=== PATIENT | male | born 1975 | race Caucasian/White ===

== ENCOUNTER 2017-03-19 01:05 | Emergency (ER) | payer BC, OTHER ==
[~2017-03-19] VITALS: Ht 188 cm; Wt 73.3 kg
[~2017-03-19 01:05] MED LIST: BUPR-79 PO; FLUC100T PO; LINA1CAP PO; MELATAB2 PO; ONDA4TAB46 PO; SACC250C3 PO; VNCS125 PO; VTMD1000 PO
[2017-03-19 01:13] VITALS: TEMP 36.7; Ht 188 cm; Wt 73.3 kg
--- NOTE | 2017-03-19 01:22 | EMERGENCY ROOM VISIT NOTE ---
History Report prepared by Gian: Rachael Damon Under the Supervision of: Dr. Abdullahi Badillo M.D. First contact with patient: :17 Chief Complaint: ABDOMINAL PAIN Stated Complaint: ABD PAIN,SHARP ON TH LRQ History of Present Illness The patient is a 41 year old male who presents to the Emergency Room with complaints of right-sided abdominal pain beginning several days ago. He describes the pain as being sharp. The patient states that he recently had a colectomy because he has diverticulitis. The patient denies fevers, rashes, chest pain, shortness of breath, urinary symptoms, and diarrhea. He states that movement exacerbates the pain. The patient denies a history of kidney stones and an appendectomy. Source of History: patient Onset: several days ago Position: abdomen (right-sided) Quality: sharp Modifying Factors (Worsening): movement Associated Symptoms: No fevers, No chest pain, No SOB, No diarrhea, No urinary symptoms, No rash Review of Systems See HPI for pertinent positives & negatives. A total of 10 systems reviewed and were otherwise negative. Past Medical & Surgical Medical Problems: (1) Clostridium difficile enterocolitis (2) Colitis (3) Diarrhea (4) Diverticulitis (5) Sigmoid diverticulitis (6) SIRS (systemic inflammatory response syndrome) Surgical Problems: (1) H/O colectomy Family History No pertinent family history Social History Smoking Status: Never Smoker Drug Use: none Marital Status: Housing Status: lives with family Occupation Status: employed Current/Historical Medications Scheduled Cholecalciferol (Vitamin D3), 1,000 UNITS PO DAILY Fluoxetine (Prozac), 10 MG PO DAILY Melatonin (Melatonin), 0.25 ML PO HS Saccharomyces Boulardii (Florastor), 250 MG PO BID Scheduled PRN Ondansetron Hcl (Zofran), 4 MG PO Q8 PRN for Nausea Allergies Coded Allergies: Tramadol (Verified Allergy, Severe, "SEVERE" MIGRAINE, DID "WEIRD" BEHAVIORS., 03/19/17) Promethazine (Verified Allergy, Intermediate, "DRUNK"/ALTERED STATE OF MIND, PER ., 03/19/17) Amoxicillin (Verified Allergy, Unknown, HIVES, 03/19/17) Trazodone (Verified Adverse Reaction, Unknown, MOOD IRRITABILITY, 03/19/17) PATIENT STATES HE TAKES TRAZADONE HS WITHOUT DIFFICULTY. PATIENT BECAME IRRITABLE WHEN TAKEN DURING THE DAY. Physical Exam Vital Signs Date Time Temp Pulse Resp B/P (MAP) Pulse Ox O2 Delivery O2 Flow Rate FiO2 03/19/17 03:02 67 16 130/73 99 Room Air 03/19/17 01:13 36.7 65 18 135/87 100 Room Air Physical Exam GENERAL: Patient is uncomfortable appearing and in no moderate distress. HEENT: No acute trauma, normocephalic atraumatic, mucous membranes moist, no nasal congestion, no scleral icterus. NECK: No stridor, no adenopathy, no meningismus, trachea is midline. LUNGS: No dyspnea. Clear to auscultation and equal bilaterally. No wheeze, no rhonchi. HEART: Regular rate and rhythm. No murmurs, rubs, gallops appreciated. ABDOMEN: Tenderness to palpation over right lower quadrant. Well healed port scars in right lower abdomen and umbilicus. Tenderness to palpation just lateral to port site. bowel sounds positive, no masses appreciated, no peritonitis. BACK: No midline tenderness, no CVA tenderness EXTREMITIES: Normal motion all extremities, no cyanosis, no edema. NEUROLOGIC: Alert and oriented, no acute motor or sensory deficits, no focal weakness, cranial nerves grossly intact. SKIN: No rash, no jaundice, no diaphoresis. Medical Decision & Procedures ER Provider Diagnostic Interpretation: Radiology results and stated below per [facility]. CT ABDOMEN & PELVIS With Contrast: Comparison is made to CT abdomen/pelvis on 06/12/2016. Small left renal cyst. No hydronephrosis or stone. Changes of prior vasectomy. Anastomotic suture line in the sigmoid colon with changes of partial colectomy. Normal appendix. Large amount of stool in the colon may represent constipation. No bowel obstruction or inflammation. Nondilated fluid and gas-filled small bowel loops are nonspecific. Enteritis cannot be excluded. Mild prominence of the bladder wall may be related to underdistention. Please correlate with urinalysis. Probably punctate bone island in the left femoral head. Laboratory Results 03/19/17 01:37 Red Blood Count 4.74, Mean Corpuscular Volume 89.9, Mean Corpuscular Hemoglobin 31.0, Mean Corpuscular Hemoglobin Concent 34.5, Mean Platelet Volume 10.4, Neutrophils (%) (Auto) 29.6, Lymphocytes (%) (Auto) 56.5, Monocytes (%) (Auto) 10.2, Eosinophils (%) (Auto) 2.9, Basophils (%) (Auto) 0.6, Neutrophils # (Auto ) 1.83, Lymphocytes # (Auto) 3.49, Monocytes # (Auto) 0.63, Eosinophils # (Auto ) 0.18, Basophils # (Auto) 0.04 03/19/17 01:37 03/19/17 02:53 Test 03/19/17 01:37 03/19/17 01:40 03/19/17 02:53 White Blood Count 6.18 K/uL (4.8-10.8) Red Blood Count 4.74 M/uL (4.7-6.1) Hemoglobin 14.7 g/dL (14.0-18.0) Hematocrit 42.6 % (42-52) Mean Corpuscular Volume 89.9 fL (80-100) Mean Corpuscular Hemoglobin 31.0 pg (25-34) Mean Corpuscular Hemoglobin Concent 34.5 g/dl (32-36) Platelet Count 264 K/uL (130-400) Mean Platelet Volume 10.4 fL (7.4-10.4) Neutrophils (%) (Auto) 29.6 % Lymphocytes (%) (Auto) 56.5 % Monocytes (%) (Auto) 10.2 % Eosinophils (%) (Auto) 2.9 % Basophils (%) (Auto) 0.6 % Neutrophils # (Auto) 1.83 K/uL (1.4-6.5) Lymphocytes # (Auto) 3.49 K/uL (1.2-3.4) Monocytes # (Auto) 0.63 K/uL (0.11-0.59) Eosinophils # (Auto) 0.18 K/uL (0-0.5) Basophils # (Auto) 0.04 K/uL (0-0.2) RDW Standard Deviation 39.5 fL (36.4-46.3) RDW Coefficient of Variation 12.0 % (11.5-14.5) Immature Granulocyte % (Auto) 0.2 % Immature Granulocyte # (Auto) 0.01 K/uL (0.00-0.02) Anion Gap 8.0 mmol/L (3-11) Est Creatinine Clear Calc Drug Dose 117.6 ml/min Estimated GFR () 124.3 Estimated GFR (Non- 107.2 BUN/Creatinine Ratio 8.7 (10-20) Calcium Level 8.8 mg/dl (8.5-10.1) Total Bilirubin 0.5 mg/dl (0.2-1) Alanine Aminotransferase (ALT/SGPT) 53 U/L (12-78) Alkaline Phosphatase 128 U/L (45-117) Total Protein 8.0 gm/dl (6.4-8.2) Albumin 4.3 gm/dl (3.4-5.0) Lipase 294 U/L (73-393) Urine Color YELLOW Urine Appearance CLEAR (CLEAR) Urine pH 7.0 (4.5-7.5) Urine Specific [place] 1.006 (1.000-1.030) Urine Protein NEG (NEG) Urine Glucose (UA) NEG (NEG) Urine Ketones NEG (NEG) Urine Occult Blood NEG (NEG) Urine Nitrite NEG (NEG) Urine Bilirubin NEG (NEG) Urine Urobilinogen NEG (NEG) Urine Leukocyte Esterase NEG (NEG) Urine WBC (Auto) 0 /hpf (0-5) Urine RBC (Auto) 0-4 /hpf (0-4) Urine Hyaline Casts (Auto) 0 /lpf (0-5) Urine Epithelial Cells (Auto) 0-5 /lpf (0-5) Urine Bacteria (Auto) NEG (NEG) Direct Bilirubin 0.1 mg/dl (0-0.2) Aspartate Amino Transf (AST/SGOT) 26 U/L (15-37) Laboratory results as reviewed by me. Medications Administered Medications (Trade) Dose Ordered Sig/Nisreen Route Start Time Stop Time Status Last Admin Dose Admin Sodium Chloride 1,000 ml @ 999 mls/hr Q1H1M STAT IV 03/19/17 01:24 03/19/17 02:24 DC 03/19/17 01:24 999 MLS/HR ED Course 0120: The patient was evaluated in room C6. A complete history and physical exam was performed. 0124: Ordered Sodium Chloride 1,000 ml @ 999 mls/hr IV. 0411: The patient admits he has been constipated and that he feels comfortable going home. He will follow up with his surgeon in a couple of days. He will return if symptoms worsen. 0424: Reevaluated the patient. Discussed results and discharge instructions: He verbalized understanding and agreement. The patient is ready for discharge. Medical Decision Differential: Appendicitis, , MSK, Diverticulitis, UTI, Renal Colic, Bowel Obstruction, Aortic Pathology, amongst other pathologies entertained. 41 yr old male with partial collectomy 1 month ago arrives with increasing RLQ pain just lateral to port site starting a few days ago. TTP over location to point where uncomfortable and given recent surgery and this I feel there is really no choice but to do CT after discussing pros/cons he agrees. No evidence of appendicitis. No evidence post surgical infection. He is significantly constipated by CT and admits he has been somewhat blocked up. Already takes miralax thus advised adding on Colace/Senna. Hold off on stronger meds due to recent surgery. Labs look good and patient stable. Reviewed abdo pain instructions and symptoms requiring RTED. Medication Reconcilliation Current Medication List: was personally reviewed by me Blood Pressure Screening Patient's blood pressure: Normal blood pressure Impression Primary Impression: Postoperative abdominal pain Additional Impressions: RLQ abdominal pain Constipation Scribe Attestation The scribe's documentation has been prepared under my direction and personally reviewed by me in its entirety. I confirm that the note above accurately reflects all work, treatment, procedures, and medical decision making performed by me. Departure Information Dispostion Home / Self-Care Referrals Cherri Rosales PA-C (PCP) Forms Call Back Authorization, HOME CARE DOCUMENTATION FORM, IMPORTANT VISIT INFORMATION Patient Instructions My [facility] Additional Instructions Continue to keep well hydrated and use increased stool softeners as discussed. Senna and Colace can be obtained over the counter. Return if worsening pain, fevers, vomiting or other concerns. Please follow up with your surgeon. Problem Qualifiers
[2017-03-19] MEDS ORDERED: SODIUM CHLORIDE 0.9% 1000ML 1,000 ML IV STA (01:24)
[2017-03-19] MEDS ORDERED: FLUO10CA48 PO (01:50)
[2017-03-19] MEDS ORDERED: SACC250C PO (01:50)
[2017-03-19] MEDS ORDERED: CHOL1000 PO (01:50)
[2017-03-19] MEDS ORDERED: [UNRECOGNIZED DRUG - CODE] PO (01:50)
[2017-03-19 01:55] LABS: HEMATOCRIT 42.6 % (42-52); MEAN CELL VOLUME 89.9 fL (80-100); MEAN CORPUSCULAR HGB CONC 34.5 g/dl (32-36); MEAN PLATELET VOLUME 10.4 fL (7.4-10.4); PLATELET COUNT 264 K/uL (130-400); RED BLOOD COUNT 4.74 M/uL (4.7-6.1); WHITE BLOOD COUNT 6.18 K/uL (4.8-10.8)
[2017-03-19 02:01] LABS: URINE APPEARANCE CLEAR (CLEAR); URINE BILIRUBIN NEG (NEG); URINE COLOR YELLOW; URINE EPITHELIAL CELL AUTO 0-5 /lpf (0-5); URINE NITRITE NEG (NEG); URINE SPECIFIC GRAVITY 1.006 (1.000-1.030); UROBILINOGEN NEG (NEG); ZZUR CULT IF INDIC CLEAN CATCH NO
[2017-03-19 02:04] LABS: MANUAL MICROSCOPIC REQUIRED? NO; REVIEW REQ? NO
[2017-03-19 02:35] LABS: ALKALINE PHOSPHATASE 128 U/L (45-117); ALT/SGPT 53 U/L (12-78); BLOOD UREA NITROGEN 7 mg/dl (7-18); BUN/CREATININE RATIO 8.7 (10-20); CALCIUM 8.8 mg/dl (8.5-10.1); CARBON DIOXIDE 26 mmol/L (21-32); CHLORIDE 106 mmol/L (98-107); CREATININE 0.84 mg/dl (0.60-1.40); GLUCOSE 89 mg/dl (70-99); SODIUM 140 mmol/L (136-145)
[2017-03-19 02:53] LABS: BASO % 0.6 %; BASO ABS # 0.04 K/uL (0-0.2); COMPLETE YES; EOS % 2.9 %; IG% 0.2 %; LYMPH % 56.5 %; LYMPH ABS # 3.49 K/uL (1.2-3.4); MONO % 10.2 %; NEUT % 29.6 %
[2017-03-19] MEDS ORDERED: OPTIRAY 320 IV PRN (03:00)
[2017-03-19 03:02] VITALS: BP 130/73; PULSE 67; O2SAT 99
[2017-03-19 03:11] LABS: POTASSIUM 3.8 mmol/L (3.5-5.1)
--- NOTE | 2017-03-19 11:33 | DIAGNOSTIC IMAGING REPORT ---
ABD/PELVIS IV CONTRAST ONLY HISTORY: 41 years-old Male RLQ pain x 3 day. s/p colectomy 1 month ago acute right lower quadrant abdominal pain. History of prior colectomy one month prior. COMPARISON: CT abdomen and pelvis 06/12/2016 TECHNIQUE: Multiple axial CT images of the abdomen and pelvis were obtained following the intravenous administration of 94 mL Optiray 320. A dose lowering technique was used consistent with the principals of MARK. FINDINGS: Mild dependent bibasilar atelectasis. No pneumoperitoneum. Imaged inferior cardiac chambers are unremarkable. The liver, gallbladder, spleen, pancreas and adrenal glands are unremarkable. Low attenuating lesions of the bilateral kidneys, largest of which measures 1.8 cm within the mid pole left kidney suggests cysts. Ureters are unremarkable. Prostate is mildly enlarged causing mass effect upon the floor of the bladder. Mild diffuse bladder wall thickening with partial distention. Posterior changes of prior mastectomy. Abdominal aorta is normal in course and caliber. No bulky adenopathy. No small bowel dilation to suggest obstruction. Postsurgical changes are seen compatible with prior partial sigmoid colon resection with anastomotic sutures in place. Minimal stranding within the adjacent mesenteric structures is likely expected postsurgical findings. No obstruction or evidence of anastomotic dehiscence. Moderate stool burden is noted throughout the colon. There are a few scattered noninflamed colonic diverticula noted. The appendix is seen on image 307 of series 3 and appears normal. Soft tissues are unremarkable. Bones appear intact. IMPRESSION: 1. Postsurgical changes of prior partial sigmoid colon resection. Mild stranding within the mesentery adjacent to the distal sigmoid colon is likely expected postsurgical findings. No postoperative complications identified. No bowel obstruction or pneumoperitoneum. 2. Normal appendix. 3. Mild colonic diverticulosis without diverticulitis. The above report was generated using voice recognition software. It may contain grammatical, syntax or spelling errors. Electronically signed by: Vipin James M.D. 03/19/2017 11:31 AM Dictated Date/Time: 03/19/2017 11:26 AM
== END 2017-03-19 04:19 | disposition home or self-care (01) ==
LOC: C.EDB 01:07 → C.EDC 04:19
DX: G89.18 Other acute postprocedural pain (principal); R10.31 Right lower quadrant pain; K59.00 Constipation, unspecified; K57.32 Diverticulitis of large intestine without perforation or abscess without bleeding; Z79.899 Other long term (current) drug therapy

== ENCOUNTER 2017-05-22 14:35 | Emergency (ER) | payer BC ==
[~2017-05-22] VITALS: Ht 188 cm; Wt 75.7 kg
[~2017-05-22 14:35] MED LIST changes: -BUPR-79 PO; +CHOL1000 PO; -FLUC100T PO; +FLUO10CA48 PO; -LINA1CAP PO; -MELATAB2 PO; +SACC250C PO; -SACC250C3 PO; -VNCS125 PO; -VTMD1000 PO; +[UNRECOGNIZED DRUG - CODE] PO
[2017-05-22 14:38] VITALS: TEMP 36.5; Ht 188 cm; Wt 75.7 kg
[2017-05-22] MEDS ORDERED: SODIUM CHLORIDE 0.9% 1000ML 1,000 ML IV STA ×2 (14:54→16:48)
[2017-05-22] MEDS ORDERED: OPTIRAY 320 IV PRN (15:15)
[2017-05-22 15:22] LABS: BASO % 0.4 %; BASO ABS # 0.02 K/uL (0-0.2); COMPLETE YES; EOS % 0.4 %; HEMATOCRIT 42.2 % (42-52); IG% 0.2 %; LYMPH % 34.8 %; LYMPH ABS # 1.64 K/uL (1.2-3.4); MEAN CELL VOLUME 89.8 fL (80-100); MEAN CORPUSCULAR HEMOGLOBIN 31.7 pg (25-34); MEAN CORPUSCULAR HGB CONC 35.3 g/dl (32-36); MEAN PLATELET VOLUME 10.4 fL (7.4-10.4); MONO % 10.4 %; NEUT % 53.8 %; PLATELET COUNT 262 K/uL (130-400); WHITE BLOOD COUNT 4.71 K/uL (4.8-10.8)
--- NOTE | 2017-05-22 15:28 | EMERGENCY ROOM VISIT NOTE ---
History Report prepared by Gian: Karley Krause Under the Supervision of: Dr. Antoni Mejia M.D. First contact with patient: 14:39 Chief Complaint: CONSTIPATION Stated Complaint: CONSTIPATION, BLOOD IN STOOL, [place], N, DIZZY History of Present Illness The patient is a 41 year old male who presents to the Emergency Room with complaints of constant constipation for two days [employer] AD[employer]. He notes that he has been having constipation, though was able to pass two bowel movements today that were dark brown in color with melena. 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 He notes nausea, headache, dizziness, and mild abdominal pain. He currently rates his pain a 4/10 in severity. He was recently seen in the ED March 2017 for similar symptoms, though he has less pain. He recently had a sigmoid colectomy on February 07, 2017. He notes 10.5 inches were removed. He notes there was minor bleeding s/p surgery. He has a history of C. diff. He denies chills, fevers, cough, congestion, and diarrhea. He notes taking a laxative last night and his stools this morning were soft with thick bloody mucus. Went to urgent care and was advised to come to the ED. He has been taking milk of magnesia. Has a history of IBS and diverticulitis. 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 He denies congestion. Review of Systems See HPI for pertinent positives and negatives. A total of ten systems were reviewed and were otherwise negative. Past Medical & Surgical Medical Problems: (1) C. difficile colitis (2) Clostridium difficile enterocolitis (3) Colitis (4) Diarrhea (5) Diverticulitis (6) IBS (irritable bowel syndrome) (7) MVP (mitral valve prolapse) (8) sigmoid colectomy (9) Sigmoid diverticulitis (10) SIRS (systemic inflammatory response syndrome) Surgical Problems: (1) H/O colectomy Family History No pertinent family history Social History Smoking Status: Never Smoker Smokeless Tobacco Use: No Alcohol Use: none Drug Use: none Marital Status: Housing Status: lives with significant other Occupation Status: employed Current/Historical Medications Scheduled Docusate Sodium (Colace), 1 CAP PO BID Fluoxetine (Prozac), 10 MG PO DAILY Melatonin (Melatonin), 0.25 ML PO HS Scheduled PRN Ondansetron Hcl (Zofran), 4 MG PO Q8 PRN for Nausea Allergies Coded Allergies: Tramadol (Verified Allergy, Severe, "SEVERE" MIGRAINE, DID "WEIRD" BEHAVIORS., 03/19/17) Vancomycin (Verified Allergy, Severe, DIZZY, RINGING IN EAR, 05/22/17) Promethazine (Verified Allergy, Intermediate, "DRUNK"/ALTERED STATE OF MIND, PER ., 03/19/17) Amoxicillin (Verified Allergy, Unknown, HIVES, 03/19/17) Trazodone (Verified Adverse Reaction, Unknown, MOOD IRRITABILITY, 03/19/17) PATIENT STATES HE TAKES TRAZADONE HS WITHOUT DIFFICULTY. PATIENT BECAME IRRITABLE WHEN TAKEN DURING THE DAY. Physical Exam Vital Signs Date Time Temp Pulse Resp B/P (MAP) Pulse Ox O2 Delivery O2 Flow Rate FiO2 05/22/17 17:22 76 18 109/69 96 Room Air 05/22/17 15:44 88 18 136/74 96 Room Air 05/22/17 14:38 36.5 92 18 149/71 96 Room Air Physical Exam GENERAL: Awake, alert, fatigued-appearing, in no distress HENT: Normocephalic, atraumatic. Oropharynx shows dry mucus membranes. EYES: Normal conjunctiva. Sclera non-icteric. NECK: Supple. No nuchal rigidity. FROM. No JVD. RESPIRATORY: Clear to auscultation. CARDIAC: Regular rate, normal rhythm. Extremities warm and well perfused. Pulses equal. ABDOMEN: Soft, non-distended. No tenderness to palpation. No rebound or guarding. No masses. RECTAL: Scant brown stool: guaiac positive. MUSCULOSKELETAL: Chest examination reveals no tenderness. The back is symmetrical on inspection without obvious abnormality. There is no CVA tenderness to palpation. No joint edema. LOWER EXTREMITIES: Calves are equal size bilaterally and non-tender. No edema. No discoloration. NEURO: Normal sensorium. No sensory or motor deficits noted. SKIN: No rash or jaundice noted. Medical Decision & Procedures ER Provider Diagnostic Interpretation: Radiology results as stated below per my review and radiologist interpretation: ABDOMEN AND PELVIS CT WITH IV CONTRAST CT DOSE: 348.87 mGy.cm HISTORY: Acute generalized abdominal pain with bloody stool. abd pain, rectal bleeding TECHNIQUE: Multiaxial CT images of the abdomen and pelvis were performed following the use of intravenous contrast. A dose lowering technique was utilized adhering to the principles of ALARA. COMPARISON STUDY: CT abdomen and pelvis 03/19/2017. FINDINGS: Mild dependent bibasilar atelectasis. No pneumatosis or pneumoperitoneum. Imaged inferior cardiac chambers are unremarkable. Gallbladder is mildly contracted. The liver, spleen, pancreas and adrenal glands are within normal limits. Cyst of the interpolar left kidney measures 1.6 cm. 4 mm low attenuating lesion of the inferior pole right kidney is too small to characterize however also suggests cyst. No renal calculi or hydronephrosis. Ureters and urinary bladder are unremarkable. Aorta is normal in course and caliber. No bulky adenopathy. Postoperative changes of the upper scrotum suggest prior vasectomy. No bowel obstruction or focal bowel wall thickening. Postsurgical changes from prior partial sigmoid colon resection. Mild diverticulosis without diverticulitis. Appendix appears normal. Soft tissues are unremarkable. Bones appear to be intact. IMPRESSION: 1. Mild colonic diverticulosis without evidence of acute diverticulitis. 2. Postsurgical changes compatible with prior partial sigmoid colon resection. No bowel obstruction. 3. Normal appendix. Electronically signed by: Vipin James M.D. 05/22/2017 4:31 PM Dictated Date/Time: 05/22/2017 4:26 PM Laboratory Results 05/22/17 15:11 Red Blood Count 4.70, Mean Corpuscular Volume 89.8, Mean Corpuscular Hemoglobin 31.7, Mean Corpuscular Hemoglobin Concent 35.3, Mean Platelet Volume 10.4, Neutrophils (%) (Auto) 53.8, Lymphocytes (%) (Auto) 34.8, Monocytes (%) (Auto) 10.4, Eosinophils (%) (Auto) 0.4, Basophils (%) (Auto) 0.4, Neutrophils # (Auto ) 2.53, Lymphocytes # (Auto) 1.64, Monocytes # (Auto) 0.49, Eosinophils # (Auto ) 0.02, Basophils # (Auto) 0.02 05/22/17 15:11 Test 05/22/17 15:11 05/22/17 15:20 05/22/17 18:03 White Blood Count 4.71 K/uL (4.8-10.8) Red Blood Count 4.70 M/uL (4.7-6.1) Hemoglobin 14.9 g/dL (14.0-18.0) Hematocrit 42.2 % (42-52) Mean Corpuscular Volume 89.8 fL (80-100) Mean Corpuscular Hemoglobin 31.7 pg (25-34) Mean Corpuscular Hemoglobin Concent 35.3 g/dl (32-36) Platelet Count 262 K/uL (130-400) Mean Platelet Volume 10.4 fL (7.4-10.4) Neutrophils (%) (Auto) 53.8 % Lymphocytes (%) (Auto) 34.8 % Monocytes (%) (Auto) 10.4 % Eosinophils (%) (Auto) 0.4 % Basophils (%) (Auto) 0.4 % Neutrophils # (Auto) 2.53 K/uL (1.4-6.5) Lymphocytes # (Auto) 1.64 K/uL (1.2-3.4) Monocytes # (Auto) 0.49 K/uL (0.11-0.59) Eosinophils # (Auto) 0.02 K/uL (0-0.5) Basophils # (Auto) 0.02 K/uL (0-0.2) RDW Standard Deviation 39.1 fL (36.4-46.3) RDW Coefficient of Variation 11.9 % (11.5-14.5) Immature Granulocyte % (Auto) 0.2 % Immature Granulocyte # (Auto) 0.01 K/uL (0.00-0.02) Erythrocyte Sedimentation Rate 4 mm/hr (0-14) Anion Gap 9.0 mmol/L (3-11) Est Creatinine Clear Calc Drug Dose 102.0 ml/min Estimated GFR () 106.4 Estimated GFR (Non- 91.8 BUN/Creatinine Ratio 8.7 (10-20) Calcium Level 8.8 mg/dl (8.5-10.1) Total Bilirubin 0.7 mg/dl (0.2-1) Direct Bilirubin 0.2 mg/dl (0-0.2) Aspartate Amino Transf (AST/SGOT) 23 U/L (15-37) Alanine Aminotransferase (ALT/SGPT) 32 U/L (12-78) Alkaline Phosphatase 97 U/L (45-117) C-Reactive Protein < 0.29 mg/dl (0-0.29) Total Protein 7.8 gm/dl (6.4-8.2) Albumin 4.1 gm/dl (3.4-5.0) Lipase 257 U/L (73-393) Urine Color YELLOW Urine Appearance CLEAR (CLEAR) Urine pH 6.5 (4.5-7.5) Urine Specific [place] 1.011 (1.000-1.030) Urine Protein NEG (NEG) Urine Glucose (UA) NEG (NEG) Urine Ketones NEG (NEG) Urine Occult Blood NEG (NEG) Urine Nitrite NEG (NEG) Urine Bilirubin NEG (NEG) Urine Urobilinogen NEG (NEG) Urine Leukocyte Esterase NEG (NEG) Lactic Acid Level 2.3 mmol/L (0.4-2.0) Bedside Lactic Acid Venous 0.71 mmol/L (0.90-1.70) Laboratory results reviewed by me Medications Administered Medications (Trade) Dose Ordered Sig/Nisreen Route Start Time Stop Time Status Last Admin Dose Admin Sodium Chloride 1,000 ml @ 999 mls/hr Q1H1M STAT IV 05/22/17 14:54 05/22/17 15:54 DC 05/22/17 14:54 999 MLS/HR Sodium Chloride 1,000 ml @ 999 mls/hr Q1H1M STAT IV 05/22/17 16:48 05/22/17 17:48 DC 05/22/17 17:21 999 MLS/HR ED Course 1448: The patient was evaluated in room C6. A complete history and physical exam was performed. 1745: I reassessed the patient at this time. He is feeling better and resting comfortably. Medical Decision I reviewed the patient's past medical history, medications, and the nursing notes as described above. The patient's presentation and history were concerning for hemorrhoids, colitis , diverticulitis, C. diff., and diverticulosis. The patient is a 41-year-old gentleman with a past medical history of diverticulitis requiring colectomy who presents emergency Department with lower abdominal pain and dark red blood per rectum that began today per hpi. On arrival the patient is relatively well-appearing, no acute distress, afebrile with stable vital signs. Abd soft nontender. Rectal exam with scan brown stool that was guaiac positive. Lactate mildly elevated to 2.2. Labs otherwise unremarkable with WBC, ESR, CRP, LFTs within normal limits. CT abdomen and pelvis unremarkable. Repeat lactate cleared after IVF, thus likely related to dehydration. Plan for GI f/u. Findings and plan for follow-up reviewed with patient. Patient agreeable and d/c'd per discharge instructions. Medication Reconcilliation Current Medication List: was personally reviewed by me Blood Pressure Screening Patient's blood pressure: Elevated blood pressure Blood pressure disposition: Elevated BP felt to be situational Impression Primary Impression: Rectal bleeding Scribe Attestation The scribe's documentation has been prepared under my direction and personally reviewed by me in its entirety. I confirm that the note above accurately reflects all work, treatment, procedures, and medical decision making performed by me. Departure Information Dispostion Home / Self-Care Referrals Cherri Rosales PA-C (PCP) Patient Instructions Bleeding Rectal, My [facility] Additional Instructions Please follow up with your GI specialist, Dr. Argueta, this week for re- evaluation. The cause of your rectal bleeding is unclear at this time. Otherwise, your exam, CT scan, and lab results did not show signs of an emergent condition at this time. Return to the emergency department for worsening symptoms as described in the accompanying instructions.
[2017-05-22 15:39] LABS: URINE APPEARANCE CLEAR (CLEAR); URINE BILIRUBIN NEG (NEG); URINE COLOR YELLOW; URINE NITRITE NEG (NEG); URINE PH 6.5 (4.5-7.5); URINE SPECIFIC GRAVITY 1.011 (1.000-1.030); UROBILINOGEN NEG (NEG); ZZUR CULT IF INDIC CLEAN CATCH NO
[2017-05-22 15:42] LABS: MANUAL MICROSCOPIC REQUIRED? NO; REVIEW REQ? NO
[2017-05-22 15:44] LABS: ALT/SGPT 32 U/L (12-78); BLOOD UREA NITROGEN 9 mg/dl (7-18); BUN/CREATININE RATIO 8.7 (10-20); C-REACTIVE PROTEIN < 0.29 mg/dl (0-0.29); CALCIUM 8.8 mg/dl (8.5-10.1); CARBON DIOXIDE 26 mmol/L (21-32); CHLORIDE 103 mmol/L (98-107); GLUCOSE 101 mg/dl (70-99); POTASSIUM 3.8 mmol/L (3.5-5.1); SODIUM 138 mmol/L (136-145)
[2017-05-22 15:47] LABS: ALKALINE PHOSPHATASE 97 U/L (45-117); AST/SGOT 23 U/L (15-37)
[2017-05-22] MEDS ORDERED: DOCU-94 PO (15:56)
--- NOTE | 2017-05-22 16:33 | DIAGNOSTIC IMAGING REPORT ---
ABDOMEN AND PELVIS CT WITH IV CONTRAST CT DOSE: 348.87 mGy.cm HISTORY: Acute generalized abdominal pain with bloody stool. abd pain, rectal bleeding TECHNIQUE: Multiaxial CT images of the abdomen and pelvis were performed following the use of intravenous contrast. A dose lowering technique was utilized adhering to the principles of ALARA. COMPARISON STUDY: CT abdomen and pelvis 03/19/2017. FINDINGS: Mild dependent bibasilar atelectasis. No pneumatosis or pneumoperitoneum. Imaged inferior cardiac chambers are unremarkable. Gallbladder is mildly contracted. The liver, spleen, pancreas and adrenal glands are within normal limits. Cyst of the interpolar left kidney measures 1.6 cm. 4 mm low attenuating lesion of the inferior pole right kidney is too small to characterize however also suggests cyst. No renal calculi or hydronephrosis. Ureters and urinary bladder are unremarkable. Aorta is normal in course and caliber. No bulky adenopathy. Postoperative changes of the upper scrotum suggest prior vasectomy. No bowel obstruction or focal bowel wall thickening. Postsurgical changes from prior partial sigmoid colon resection. Mild diverticulosis without diverticulitis. Appendix appears normal. Soft tissues are unremarkable. Bones appear to be intact. IMPRESSION: 1. Mild colonic diverticulosis without evidence of acute diverticulitis. 2. Postsurgical changes compatible with prior partial sigmoid colon resection. No bowel obstruction. 3. Normal appendix. Electronically signed by: Vipin James M.D. 05/22/2017 4:31 PM Dictated Date/Time: 05/22/2017 4:26 PM
[2017-05-22] MEDS ORDERED: ACETAMINOPHEN 500 MG TAB PO STA (18:26)
[2017-05-22 19:06] VITALS: BP 115/79; PULSE 68; O2SAT 98
== END 2017-05-22 19:09 | disposition home or self-care (01) ==
LOC: C.EDB 14:37 → C.EDC 19:09
DX: K62.5 Hemorrhage of anus and rectum (principal); K57.32 Diverticulitis of large intestine without perforation or abscess without bleeding; K58.9 Irritable bowel syndrome, unspecified